=== PATIENT | male | born 1965 | race Caucasian/White ===

== ENCOUNTER 2016-05-28 18:38 | Emergency (ER) | payer OTHER | END 2016-05-28 21:25 | disposition left against medical advice (07) | LOC: UCCORT 18:38 | DX: R21 Rash and other nonspecific skin eruption (principal); Z53.21 Procedure and treatment not carried out due to patient leaving prior to being seen by health care provider ==

== ENCOUNTER 2016-05-29 10:09 | Emergency (ER) | payer BC, OTHER ==
--- NOTE | 2016-05-29 11:06 | UC ---
Skin Complaint HPI - HPI Summary HPI Summary: patient was bit by a tick, has large area of urticari surrounding the bite. worried about lyme - History of Current Complaint Chief Complaint: UCSkin Time Seen by Provider: 05/29/16 10:58 Stated Complaint: TICK BITE Hx Obtained From: Patient Onset/Duration: Sudden Onset, Lasting Days Skin Exposure Onset/Duration: Days Ago Timing: Constant Onset Severity: Severe Current Severity: Moderate Pain Intensity: 0 - itchy Location: Discrete - at right lower abdomen Character: Pruritus, Hives, Raised Aggravating: Humidity Alleviating: Nothing Related History: Insect Bite/Sting - Allergy/Home Medications Allergies/Adverse Reactions: Allergies Allergy/AdvReac Type Severity Reaction Status Date / Time No Known Allergies Allergy Verified 05/29/16 10:50 Home Medications: Home Medications NK [No Home Medications Reported] 05/29/16 [History Confirmed 05/29/16] Review of Systems Constitutional: Negative Skin: Other - hives Eyes: Negative ENT: Negative Respiratory: Negative Cardiovascular: Negative Gastrointestinal: Negative Genitourinary: Negative Motor: Negative Neurovascular: Negative Musculoskeletal: Negative Neurological: Negative Psychological: Negative All Other Systems Reviewed And Are Negative: Yes PMH/Surg Hx/FS Hx/Imm Hx Previously Healthy: Yes Cardiovascular History Of: Reports: Hypertension - no meds - Surgical History Surgical History: None - Family History Known Family History: Positive: Hypertension - Social History Alcohol Use: Occasionally Substance Use Type: None Smoking Status (MU): Current Some Day Smoker - Immunization History Most Recent Tetanus Shot: unknown Physical Exam Triage Information Reviewed: Yes Appearance: Well-Appearing, Well-Nourished, Pain Distress Vital Signs: Initial Vital Signs Temp 98.8 F 05/29/16 10:38 Pulse 79 05/29/16 10:38 Resp 20 05/29/16 10:38 BP 172/105 05/29/16 10:38 Vital Signs Reviewed: Yes Eye Exam: Normal Eyes: Positive: Conjunctiva Clear ENT Exam: Normal ENT: Positive: Normal ENT inspection, Hearing grossly normal, Pharynx normal, TMs normal Dental Exam: Normal Neck exam: Normal Neck: Positive: Supple, Nontender, No Lymphadenopathy Respiratory Exam: Normal Respiratory: Positive: Chest non-tender, Lungs clear, Normal breath sounds Cardiovascular Exam: Normal Cardiovascular: Positive: RRR, No Murmur, Pulses Normal Abdominal Exam: Normal Abdomen Description: Positive: Nontender, No Organomegaly, Soft Bowel Sounds: Positive: Present Musculoskeletal Exam: Normal Musculoskeletal: Positive: Strength Intact, ROM Intact, No Edema Neurological Exam: Normal Neurological: Positive: Alert, Muscle Tone Normal Psychological Exam: Normal Skin: Positive: Other - large raised hives noted around the tick bite, Course/Dx - Course Course Of Treatment: hx obtained, exam performed, patient refusing treatment for allerigc reaction, states it is not that painful. given lyme prophylaxis. educated on symtpoms of lyme disease. - Differential Diagnoses - Skin Complaint Differential Diagnoses: Abscess, Allergic Reaction, Urticaria - Diagnoses Provider Diagnoses: allerigc reaction to tick bite Discharge - Discharge Plan Condition: Stable Disposition: HOME Patient Education Materials: Tick Bite (ED) Additional Instructions: take the dose of doxycyline with your next meal.
[2016-05-29] MEDS ORDERED: DOXYcycline CAP(*) 100 MG PO ONE (11:10)
[2016-05-29 11:29] VITALS: BP 193/112
== END 2016-05-29 11:29 | disposition home or self-care (01) ==
LOC: UCCORT 10:09
DX: T63.481A Toxic effect of venom of other arthropod, accidental (unintentional), initial encounter (principal); L50.9 Urticaria, unspecified; Y92.9 Unspecified place or not applicable; Z72.0 Tobacco use
CPT/HCPCS: 99212; A9270-GY; G0463